=== PATIENT | female | born 1985 | race Caucasian/White ===

== ENCOUNTER 2016-12-11 05:50 | Inpatient (IN) | payer OTHER ==
[~2016-12-11] VITALS: Ht 162.6 cm; Wt 87.3 kg
[2016-12-11] VITALS (11 sets, daily range): BP systolic 104–151; BP diastolic 63–84
[~2016-12-11 05:50] MED LIST: IBUP-1222 PO; LACTATED RINGERS 1,000 ML IV SCH; OXYC-302 PO
[2016-12-11] MEDS ORDERED: LACTATED RINGERS 1,000 ML IV SCH ×2 (05:52→07:30)
[2016-12-11] MEDS ORDERED: OXYTOCIN 30U/ 0.9% NaCL 500ML 500 ML IV SCH (05:52)
[2016-12-11] MEDS ORDERED: ONDANSETRON 2MG/ML, 2ML IVPush ONE (06:00)
[2016-12-11] MEDS ORDERED: METOCLOPRAMIDE 5 MG/ML, 2ML IV ONE (06:00)
[2016-12-11] MEDS ORDERED: SODIUM CITRATE/CITRIC ACID 30 ML UDC PO ONE (06:00)
[2016-12-11] MEDS ORDERED: CEFAZOLIN PMX 1GM/50ML 50 ML IVPB ONE (06:00)
[2016-12-11] MEDS ORDERED: CALCIUM CARBONATE 500 MG TAB.CHEW PO PRN ×2 (06:00→07:30)
[2016-12-11] MEDS ORDERED: LACTATED RINGERS 1,000 ML IVBOLUS ONE (06:00)
[2016-12-11] MEDS ORDERED: NEWBORN KIT ONE (06:13)
[2016-12-11] MEDS ORDERED: METOCLOPRAMIDE 5 MG/ML, 2ML ONE (06:37)
[2016-12-11] MEDS ORDERED: SODIUM CITRATE/CITRIC ACID 30 ML UDC ONE (06:37)
[2016-12-11] MEDS ORDERED: OXYTOCIN 30U/ 0.9% NaCL 500ML 500 ML ONE ×2 (06:38→11:59)
[2016-12-11 06:40] LABS: HEMATOCRIT 32.3 % (34.6-47.8); HEMOGLOBIN 10.8 g/dL (11.7-16.4); WHITE BLOOD COUNT 11.6 x10^3/uL (3.4-10)
[2016-12-11] MEDS ORDERED: morphine SULFATE/PF 1 MG/ML, 10ML ONE (07:06)
[2016-12-11] MEDS ORDERED: SIMETHICONE 80 MG CHEW TAB PO PRN (07:30)
[2016-12-11] MEDS ORDERED: MISOPROSTOL 200 MCG TABLET PR PRN (07:30)
[2016-12-11] MEDS ORDERED: OXYcodone/APAP 5/325MG TABLET PO PRN (07:30)
[2016-12-11] MEDS ORDERED: morphine SULFATE 10 MG/ML, 1ML IVPush PRN ×2 (07:30)
[2016-12-11] MEDS ORDERED: MEASLES,MUMPS&RUBELLA VACC/PF 0.5 ML SQ-VACC PRN (07:30)
[2016-12-11] MEDS ORDERED: ACETAMINOPHEN 325 MG TABLET PO PRN ×2 (07:30)
[2016-12-11] MEDS ORDERED: DIPH,PERTUSS(ACELL),TET VAC/PF NC IM-VACC PRN (07:30)
[2016-12-11] MEDS ORDERED: ONDANSETRON 2MG/ML, 2ML IV PRN (07:30)
[2016-12-11] MEDS ORDERED: CEFAZOLIN 1,000 MG ONE (07:32)
[2016-12-11] MEDS ORDERED: PHENYLEPHRINE 10 MG/ML ONE (07:32)
[2016-12-11] MEDS ORDERED: DIPHENHYDRAMINE 50 MG/ML, 1ML ONE (07:32)
[2016-12-11] MEDS ORDERED: ONDANSETRON 2MG/ML, 2ML ONE (07:32)
[2016-12-11] MEDS ORDERED: MISOPROSTOL 200 MCG TABLET ONE (08:47)
[2016-12-11] MEDS: PRENATAL VIT/IRON/FA 1 EACH TABLET PO SCH (09:00)
[2016-12-11] MEDS ORDERED: MISOPROSTOL 200 MCG TABLET PR ONE ×2 (09:00→15:30)
[2016-12-11] MEDS: LACTATED RINGERS 1,000 ML IV SCH ×2 (10:06→17:30)
[2016-12-11] MEDS ORDERED: METHYLERGONOVINE 0.2 MG/ML IM ONE (10:27)
[2016-12-11] MEDS ORDERED: METHYLERGONOVINE 0.2 MG/ML IM STA (10:31)
[2016-12-11 11:28] LABS: HEMATOCRIT 29.6 % (34.6-47.8); HEMOGLOBIN 10.1 g/dL (11.7-16.4); WHITE BLOOD COUNT 22.4 x10^3/uL (3.4-10)
[2016-12-11] MEDS: OXYTOCIN 30U/ 0.9% NaCL 500ML 500 ML IV SCH ×2 (12:02→17:30)
[2016-12-11] MEDS ORDERED: KETOROLAC 30 MG/1 ML ONE (12:06)
[2016-12-11] MEDS: KETOROLAC 30 MG/1 ML IV SCH ×2 (12:07→18:00)
[2016-12-11] MEDS: OXYcodone/APAP 5/325MG TABLET PO PRN (15:12)
[2016-12-11 15:23] LABS: HEMATOCRIT 27.4 % (34.6-47.8); HEMOGLOBIN 9.1 g/dL (11.7-16.4); WHITE BLOOD COUNT 19.3 x10^3/uL (3.4-10)
[2016-12-11] MEDS ORDERED: OMNIPAQUE 350 MG/ML, 100ML BOTTLE ONE (15:58)
[2016-12-11] MEDS ORDERED: DIPHENHYDRAMINE 50 MG/ML, 1ML IVPush ONE (16:30)
[2016-12-11] MEDS ORDERED: ACETAMINOPHEN 325 MG TABLET PO ONE (16:30)
[2016-12-11] MEDS ORDERED: PLEASE ENTER ALLERGIES MC SCH ×2 (16:30)
[2016-12-12] MEDS: KETOROLAC 30 MG/1 ML IV SCH ×4 (00:29→18:02)
[2016-12-12 00:30] VITALS: BP 101/62
[2016-12-12 00:50] LABS: HEMATOCRIT 28.5 % (34.6-47.8); HEMOGLOBIN 9.5 g/dL (11.7-16.4); WHITE BLOOD COUNT 16.5 x10^3/uL (3.4-10)
[2016-12-12] MEDS: LACTATED RINGERS 1,000 ML IV SCH ×3 (03:30→23:30)
[2016-12-12] MEDS: OXYTOCIN 30U/ 0.9% NaCL 500ML 500 ML IV SCH ×3 (03:30→23:30)
[2016-12-12 04:10] VITALS: BP 105/68
[2016-12-12 07:30] VITALS: BP 107/71
[2016-12-12 07:35] LABS: HEMATOCRIT 28.9 % (34.6-47.8); HEMOGLOBIN 9.7 g/dL (11.7-16.4); WHITE BLOOD COUNT 16.3 x10^3/uL (3.4-10)
[2016-12-12] MEDS: PRENATAL VIT/IRON/FA 1 EACH TABLET PO SCH (08:27)
[2016-12-12] MEDS: DOCUSATE 100 MG CAPSULE PO PRN ×2 (08:27→20:22)
[2016-12-12 12:30] VITALS: BP 125/64
[2016-12-12 16:30] VITALS: BP 121/75
[2016-12-12] MEDS: OXYcodone/APAP 5/325MG TABLET PO PRN ×2 (16:43→20:22)
[2016-12-12 20:15] VITALS: BP 107/68
[2016-12-13] MEDS: IBUPROFEN 600 MG TABLET PO PRN ×3 (00:24→13:14)
[2016-12-13] MEDS: OXYcodone/APAP 5/325MG TABLET PO PRN ×2 (06:01→13:14)
[2016-12-13 07:50] VITALS: BP 117/76
[2016-12-13] MEDS: DOCUSATE 100 MG CAPSULE PO PRN (10:09)
[2016-12-13] MEDS: PRENATAL VIT/IRON/FA 1 EACH TABLET PO SCH (10:09)
== END 2016-12-13 14:00 | disposition home or self-care (01) | DRG 766 ==
LOC: LDIP 05:50 → 2NW 12:40
PROVIDERS: ADMIT Obstetrics & Gynecology; ATTEND Obstetrics & Gynecology
PROC: 10D00Z1 Extraction of Products of Conception, Low, Open Approach (ICD-10-PCS; principal; 2016-12-11)
PROC: 30233N1 Transfusion of Nonautologous Red Blood Cells into Peripheral Vein, Percutaneous Approach (ICD-10-PCS; 2016-12-11)
DX: O34.211 Maternal care for low transverse scar from previous cesarean delivery (principal); O69.81X0 Labor and delivery complicated by cord around neck, without compression, not applicable or unspecified; Z37.0 Single live birth; Z3A.39 39 weeks gestation of pregnancy; Z14.1 Cystic fibrosis carrier; Z88.5 Allergy status to narcotic agent
CPT/HCPCS: 36415; 74177; 85025; 86850; 86900; 86923; J0690; J1885; J2274; J2405; Q9967; J1200; J2210; J2370; J2590; J2765; J7120; P9016

== ENCOUNTER 2016-12-15 15:23 | Inpatient (IN) | payer OTHER ==
[~2016-12-15] VITALS: Ht 162.6 cm; Wt 78.9 kg
[~2016-12-15 15:23] MED LIST changes: -LACTATED RINGERS 1,000 ML IV SCH
[2016-12-15] MEDS ORDERED: SODIUM CHLORIDE 0.9% 1,000 ML IV ONE (15:37)
[2016-12-15] MEDS ORDERED: SODIUM CHLORIDE FLUSH 10ML SYR IVF ONE (16:00)
[2016-12-15] MEDS ORDERED: SODIUM CHLORIDE 0.9% 1,000ML IVBOLUS ONE (16:00)
[2016-12-15 16:27] LABS: HEMOGLOBIN 10.4 g/dL (11.7-16.4); WHITE BLOOD COUNT 14.2 x10^3/uL (3.4-10)
[2016-12-15 16:36] LABS: ASPARTATE AMINO TRANSFERASE 75 U/L (15-37); BLOOD UREA NITROGEN 14 mg/dL (7-18)
[2016-12-15 17:30] LABS: PATH.CAST-FLAG NOT PRESENT; SPERM-FLAG NOT PRESENT; SRC-FLAG NOT PRESENT; XTAL-FLAG NOT PRESENT; YLC-FLAG NOT PRESENT
[2016-12-15] MEDS ORDERED: LABETALOL 5MG/ML, 20ML IVPush STA (18:37)
[2016-12-15] MEDS ORDERED: LABETALOL 5MG/ML, 20ML ONE (18:55)
[2016-12-15] MEDS ORDERED: MAGNESIUM SULFATE PMX 4GM/100M 100 ML IV ONE (19:00)
[2016-12-15 19:19] LABS: IS PT STATUS REG ER OR PRE ER? YES
[2016-12-15] MEDS: LACTATED RINGERS 1,000 ML IV PRN (20:09)
[2016-12-15] MEDS: MAGNESIUM SULF. PMX 20GM/500ML 500 ML IV SCH (20:11)
[2016-12-15] MEDS ORDERED: MAGNESIUM SULFATE PMX 4GM/100M 100 ML IVPB ONE (20:30)
[2016-12-15] MEDS ORDERED: METOCLOPRAMIDE 5 MG/ML, 2ML ONE (20:43)
[2016-12-15] MEDS ORDERED: ONDANSETRON 2MG/ML, 2ML ONE (20:43)
[2016-12-15] MEDS: ONDANSETRON 2MG/ML, 2ML IVPush PRN (20:47)
[2016-12-15] MEDS ORDERED: METOCLOPRAMIDE 5 MG/ML, 2ML IVPush PRN (21:00)
[2016-12-15] MEDS ORDERED: OXYcodone IR 5MG TABLET ONE ×2 (22:19→23:12)
[2016-12-15] MEDS: OXYcodone IR 5MG TABLET PO PRN ×2 (22:21→23:15)
[2016-12-16 02:15] LABS: HEMATOCRIT 31.8 % (34.6-47.8); HEMOGLOBIN 10.5 g/dL (11.7-16.4); WHITE BLOOD COUNT 13.8 x10^3/uL (3.4-10)
[2016-12-16 02:28] LABS: ASPARTATE AMINO TRANSFERASE 80 U/L (15-37); BLOOD UREA NITROGEN 9 mg/dL (7-18)
[2016-12-16] MEDS ORDERED: MAGNESIUM SULF. PMX 20GM/500ML 500 ML IV ONE ×2 (02:47→17:47)
[2016-12-16] MEDS: MAGNESIUM SULF. PMX 20GM/500ML 500 ML IV SCH (02:51)
[2016-12-16] MEDS ORDERED: LABETALOL 100 MG TABLET ONE ×2 (04:20→16:35)
[2016-12-16] MEDS: LABETALOL 100 MG TABLET PO SCH ×2 (04:22→16:38)
[2016-12-16] MEDS ORDERED: ONDANSETRON 2MG/ML, 2ML ONE ×2 (05:50→15:22)
[2016-12-16] MEDS: ONDANSETRON 2MG/ML, 2ML IVPush PRN ×2 (05:52→15:24)
[2016-12-16 06:00] VITALS: BP 134/84
[2016-12-16 08:10] LABS: ASPARTATE AMINO TRANSFERASE 74 U/L (15-37); BLOOD UREA NITROGEN 10 mg/dL (7-18)
[2016-12-16] MEDS: LACTATED RINGERS 1,000 ML IV PRN ×2 (08:12→20:41)
[2016-12-16 08:21] LABS: HEMATOCRIT 33.3 % (34.6-47.8); HEMOGLOBIN 11.1 g/dL (11.7-16.4); WHITE BLOOD COUNT 12.9 x10^3/uL (3.4-10)
[2016-12-16] MEDS ORDERED: OXYcodone 5 MG/5 ML ORAL.SOL UDC ONE (15:22)
[2016-12-16] MEDS: OXYcodone IR 5MG TABLET PO PRN (15:24)
[2016-12-16] MEDS ORDERED: MAGNESIUM SULF. PMX 20GM/500ML 500 ML IV SCH (20:06)
[2016-12-17] MEDS ORDERED: LABETALOL 100 MG TABLET ONE ×2 (04:10→18:25)
[2016-12-17 08:19] LABS: ASPARTATE AMINO TRANSFERASE 30 U/L (15-37); BLOOD UREA NITROGEN 8 mg/dL (7-18)
[2016-12-17 08:24] LABS: HEMOGLOBIN 10.8 g/dL (11.7-16.4); WHITE BLOOD COUNT 12.5 x10^3/uL (3.4-10)
[2016-12-17] MEDS ORDERED: ACETAMINOPHEN 325 MG TABLET ONE ×2 (18:24→23:00)
[2016-12-17] MEDS: LABETALOL 100 MG TABLET PO SCH (18:37)
[2016-12-17] MEDS: ACETAMINOPHEN 325 MG TABLET PO PRN ×2 (18:39→23:02)
[2016-12-17 20:57] VITALS: BP 131/68
[2016-12-18] MEDS ORDERED: CYCLOBENZAPRINE 10 MG TABLET PO ONE (04:30)
[2016-12-18 05:49] LABS: BLOOD UREA NITROGEN 9 mg/dL (7-18)
[2016-12-18 05:52] LABS: HEMATOCRIT 34.1 % (34.6-47.8); HEMOGLOBIN 11.3 g/dL (11.7-16.4); WHITE BLOOD COUNT 10.5 x10^3/uL (3.4-10)
[2016-12-18 05:55] LABS: ASPARTATE AMINO TRANSFERASE 14 U/L (15-37)
[2016-12-18] MEDS ORDERED: LABETALOL 100 MG TABLET ONE (05:56)
[2016-12-18] MEDS: LABETALOL 100 MG TABLET PO SCH (06:11)
[2016-12-18] MEDS ORDERED: IBUPROFEN 800 MG TABLET ONE (06:13)
[2016-12-18] MEDS ORDERED: IBUPROFEN 200 MG TABLET PO PRN (06:30)
[2016-12-18] MEDS ORDERED: IBUP200T48 PO (10:28)
[2016-12-18] MEDS ORDERED: LABE100T3 PO (10:30)
[2016-12-18] MEDS ORDERED: CYCL5TAB PO (10:31)
[2016-12-18] MEDS ORDERED: ONDA4TAB7 PO (10:31)
== END 2016-12-18 10:45 | disposition home or self-care (01) | DRG 776 ==
LOC: ED 18:30 → EDIP 18:37 → LDIP 20:29
PROVIDERS: ADMIT Obstetrics & Gynecology; ATTEND Obstetrics & Gynecology
DX: O14.95 Unspecified pre-eclampsia, complicating the puerperium (principal); G44.209 Tension-type headache, unspecified, not intractable; G43.909 Migraine, unspecified, not intractable, without status migrainosus; O13.5 Gestational [pregnancy-induced] hypertension without significant proteinuria, complicating the puerperium
CPT/HCPCS: 36415; 70360; 71010; 80053; 81001; 82248; 83735; 84484; 84550; 85025; 85610; 85730; 93005; 96361; 96374; J2405; J2765; J3475; J7030; J7120

== ENCOUNTER 2016-12-31 12:18 | Emergency (ER) | payer OTHER ==
[~2016-12-31] VITALS: Ht 162.6 cm; Wt 70.0 kg
[~2016-12-31 12:18] MED LIST changes: +CYCL5TAB PO; +IBUP200T48 PO; +LABE100T3 PO; +ONDA4TAB7 PO
[2016-12-31] MEDS ORDERED: SODIUM CHLORIDE FLUSH 10ML SYR IVF ONE (14:00)
[2016-12-31] MEDS ORDERED: SODIUM CHLORIDE 0.9% 1,000ML IVBOLUS ONE (14:00)
[2016-12-31] MEDS ORDERED: ONDANSETRON 2MG/ML, 2ML IVPush ONE (14:00)
[2016-12-31 14:07] LABS: WHITE BLOOD COUNT 10.8 x10^3/uL (3.4-10)
[2016-12-31 14:21] LABS: ASPARTATE AMINO TRANSFERASE 14 U/L (15-37); BLOOD UREA NITROGEN 10 mg/dL (7-18)
[2016-12-31 14:26] LABS: IS PT STATUS REG ER OR PRE ER? YES
[2016-12-31 14:32] LABS: PATH.CAST-FLAG NOT PRESENT; SPERM-FLAG NOT PRESENT; SRC-FLAG NOT PRESENT; XTAL-FLAG NOT PRESENT; YLC-FLAG NOT PRESENT
[2016-12-31 16:38] VITALS: BP 107/72
== END 2016-12-31 17:14 | disposition home or self-care (01) ==
LOC: ED 14:22
DX: F41.1 Generalized anxiety disorder (principal); I10 Essential (primary) hypertension
CPT/HCPCS: 36415; 80053; 81001; 83605; 84484; 85025; 87086; 93005; 96361; 96374; 99285; J2405; J7030